=== PATIENT | male | born 1975 | race American Indian/Alaskan Native ===

== ENCOUNTER 2020-09-21 04:06 | Emergency (ER) | payer SELFPAY ==
[2020-09-21] MEDS ORDERED: ASPIRIN 325 MG TAB PO ONE (04:15)
[2020-09-21 04:52] LABS: Basophils # (Auto) 0.2 K/mm3 (0.0-0.1); Basophils % (Auto) 2.2 % (0.0-1.8); Eosinophils # (Auto) 0.1 K/mm3 (0.0-0.4); Eosinophils % (Auto) 1.4 % (0.0-4.3); Hematocrit 40.4 % (35.5-45.6); Hemoglobin 12.9 gm/dl (11.8-15.2); Lymphocytes # (Auto) 1.7 K/mm3 (1.2-5.4); Lymphocytes % (Auto) 20.4 % (13.4-35.0); Mean Corpuscular HGB Conc 32 % (32-34); Mean Corpuscular Volume 87 fl (84-94); Monocytes # (Auto) 0.5 K/mm3 (0.0-0.8); Monocytes % (Auto) 6.2 % (0.0-7.3); Platelet Count 256 K/mm3 (140-440); Red Blood Count 4.67 M/mm3 (3.65-5.03)
--- NOTE | 2020-09-21 04:56 | XRay Report ---
CHEST 2 VIEWS INDICATION / CLINICAL INFORMATION: chest pain. FINDINGS: SUPPORT DEVICES: None. HEART / MEDIASTINUM: No significant abnormality. LUNGS / PLEURA: No significant pulmonary or pleural abnormality. No pneumothorax. ADDITIONAL FINDINGS: No significant additional findings. IMPRESSION: 1. No acute findings. Signer Name: Stuart Boyer MD Signed: 09/21/2020 4:51 AM Workstation Name: [id number]
[2020-09-21 05:12] LABS: Alanine Aminotransferase 13 units/L (7-56); Albumin 4.8 g/dL (3.9-5); BUN/Creatinine Ratio 19; Blood Urea Nitrogen 15 mg/dL (9-20); Calcium 9.6 mg/dL (8.4-10.2); Hemolysis Index 3
[2020-09-21 06:53] LABS: Chol/HDL Ratio 1.55 %; HDL Cholesterol 114 mg/dL (40-59); LDL Cholesterol,Direct 62 mg/dL (50-130)
--- NOTE | 2020-09-21 09:20 | Electrocardiograph Report ---
[facility] Test Date: 2020-09-21 Test Time: 04:17:51 Pat Name: MONCHO BERRY Department: Room: Gender: M Document Management Specialist: ABBIE : [id number] Requested By: ED DOC Order Number: [id number] Reading MD: Ej Olivares Measurements Intervals [place] Rate: 67 P: 25 AK: 172 QRS: 35 QRSD: 99 T: 25 QT: 397 QTc: 420 Interpretive Statements Sinus rhythm Left ventricular hypertrophy No previous ECG available for comparison Electronically Signed On 09-21-2020 9:20:06 EDT by Ej Olivares
== END 2020-09-21 05:00 | disposition left against medical advice (07) ==
LOC: ED 04:06
DX: R07.9 Chest pain, unspecified (principal); Z53.21 Procedure and treatment not carried out due to patient leaving prior to being seen by health care provider
CPT/HCPCS: 36415; 71046; 80053; 80061; 84484; 85025; 93005